=== PATIENT | male | born 1955 | race Caucasian/White ===

== ENCOUNTER → 2020-08-18 | Outpatient (CLI) | payer OTHER | LOC: CAT 15:47 | PROVIDERS: ATTEND Internal Medicine Cardiovascular Disease | DX: Z13.6 Encounter for screening for cardiovascular disorders (principal); I25.10 Atherosclerotic heart disease of native coronary artery without angina pectoris; E78.00 Pure hypercholesterolemia, unspecified ==

== ENCOUNTER → 2020-09-21 | Outpatient (CLI) | payer OTHER ==
[~2020-09-21] MED LIST: ADDERALL 20 MG20 MG PO; ASA81BEC PO; BYSTOLIC 5 MG5 MG PO; CEPHALEXIN 250250 M1 PO; EDARBYCLOR 40-1 EACH PO; FLOMAX0.4 MG PO; FLONASE 0.05%50 MCG NARES; GLUCOSAMINE CH1 EAC4 PO; MELOXICAM15 MG PO; METFORMIN HCL500 M3 PO; MULTI VITAMIN1 EACH PO; MYRBETRIQ50 MG PO; NEXIUM 24HR20 M2 PO; NORVASC5 MG PO; PRAVACHOL40 MG PO; PROSCAR 5MG TABL5 M1 PO; TAMSULOSIN HCL0.4 MG PO; TRAMADOL 50 MG50 MG PO; TYLENOL ARTHRI650 MG PO
== END ==
LOC: LAB 11:40
PROVIDERS: ATTEND Family Medicine
DX: N41.0 Acute prostatitis (principal)

== ENCOUNTER → 2020-09-28 | Outpatient (CLI) | payer OTHER | LOC: SJCVCIMAG 08:57 | PROVIDERS: ATTEND Internal Medicine Cardiovascular Disease | DX: I49.3 Ventricular premature depolarization (principal); R93.1 Abnormal findings on diagnostic imaging of heart and coronary circulation; I10 Essential (primary) hypertension; E78.5 Hyperlipidemia, unspecified; R07.89 Other chest pain; Z88.1 Allergy status to other antibiotic agents ==

== ENCOUNTER → 2020-10-26 | Outpatient (CLI) | payer OTHER ==
[~2020-10-26] MED LIST changes: +HYDROCODON-ACE1 EAC7 PO; +MS CONTIN15 MG PO; +TRI-BUFFERED A325 M1 PO
[2020-10-26 14:16] LABS: HEMATOCRIT 42.7 % (42.0-52.0); HEMOGLOBIN 14.3 gm/dL (14.0-18.0); MCH 30.2 pg (26.0-34.0); MCHC 33.4 g/dL (28.0-37.0); MCV 90.4 fL (80.0-100.0); RBC 4.73 mil/uL (4.50-6.00); RDW 14.2 % (10.5-14.5); WBC 9.5 thou/uL (4.0-11.0)
[2020-10-26 14:25] LABS: ALBUMIN 3.7 g/dL (3.4-5.0); CALCIUM 9.4 mg/dL (8.5-10.1); POTASSIUM 4.4 mmol/L (3.5-5.1)
[2020-10-26 14:28] LABS: INR 0.94; PROTIME 10.3 Seconds (10.5-12.1)
[2020-10-26 14:30] LABS: URINE BILIRUBIN NEGATIVE (Negative); URINE BLOOD NEGATIVE (Negative); URINE CLARITY CLEAR; URINE COLOR YELLOW; URINE GLUCOSE-RANDOM* NEGATIVE (Negative); URINE KETONES NEGATIVE (Negative); URINE LEUKOCYTES-REFLEX NEGATIVE (Negative); URINE NITRITE-REFLEX NEGATIVE (Negative); URINE PROTEIN (DIPSTICK) NEGATIVE (Negative); URINE SPECIFIC GRAVITY 1.025 (1.005-1.035); URINE UROBILINOGEN 0.2 E.U./dl (0.2-1.0)
== END ==
LOC: PAC 07:47
PROVIDERS: ATTEND Orthopaedic Surgery
DX: Z01.812 Encounter for preprocedural laboratory examination (principal); Z20.822 Contact with and (suspected) exposure to COVID-19; M17.11 Unilateral primary osteoarthritis, right knee; E11.9 Type 2 diabetes mellitus without complications; I10 Essential (primary) hypertension

== ENCOUNTER 2020-10-31 08:08 | Observation (INO) | payer OTHER ==
[2020-10-31] VITALS (10 sets, daily range): BP systolic 98–134; BP diastolic 58–78
[~2020-10-31] VITALS: Ht 177.8 cm; Wt 129.7 kg
[~2020-10-31 08:08] MED LIST changes: -HYDROCODON-ACE1 EAC7 PO; -MS CONTIN15 MG PO; -TRI-BUFFERED A325 M1 PO
--- NOTE | 2020-10-31 16:57 | NUR ---
Admission this PM from OR, s/p R TKA; transferred to room safely. On room air. Vital signs stable. On MS, not on telemetry; no complains and signs of chest pain, crushing sensation and heaviness. With at bedside. On regular diet- tolerating well; no nausea, no vomiting and no abdominal pain noted. Falls bundle in place. On blood sugar monitoring, taken and recorded accordingly. Continent of bowel and bladder, able to use urinal. With SL at L FA- D5NS at 100cc/hr started as prescribed; on IV antibiotics as well. S/P R knee- dressing in place, C/D/I; MAYTE hose, polar pack and SCDs in place. JOVANNY dressing in place. Admission assessment, history and education done. Admission forms signed at OR. Pt complained pain upon arriving in the [facility]; called pharmacy to verify meds so PRN pain meds can be given; PRN Morphine given as prescribed. Pt seen and examined by PT Simeon; able to walk in the unit with walker and gait belt. Pt seen by pharmacist re: home meds. PRN PO pain meds given as well. To continue monitoring patient.
--- NOTE | 2020-11-01 04:28 | NUR ---
ASSESSMENT COMPLETED. PT IS ALERT AND ORIENTED. S/P R KNEE SURGERY. PT WITH JOVANNY HANNA WELL TEDS, POLAR ANDRAE AND SCD TO LLE. AFEBRILE. NORCO GIVEN FOR PAIN-RELIEF OBTAINED. DENIES ANY GI OR DISCOMFORT. VOIDING WELL PER URINAL.NO FURTHER CONCERNS AT THIS TIME.
[2020-11-01 04:36] VITALS: BP 117/60
--- NOTE | 2020-11-01 08:57 | NUR ---
ASSESSMENT: CM REVIEWED CHART AND MET WITH PATIENT AT THE BEDSIDE. PT IS ALERT AND ORIENTED X4. PT IS S/P RIGHT TOTAL KNEE REPLACEMENT. PT REPORTS THAT HE LIVES IN A HOUSE WITH HIS THAT IS SPLIT LEVEL BUT PLANS ON STAYING WITH HIS SON WHO LIVES IN A RANCH STYLE HOME UNTIL HE IS DONE WITH SOME OUTPATIENT THERAPY. PT REPORTS THAT HE HAS A WALKER AT HOME TO ASSIST WITH AMBULATION BUT NORMALLY IS FULLY INDEPENDENT WITH ADLS AND AMBULATION. PT REPORTS HAVING OUTPATIENT THERAPY ARRANGED TO BEGIN AT [facility]. PT STATES HE PLANS ON STAYING WITH HIS SON TO AVOID SOME STEPS FOR A WHILE. CM DISCUSSED ROLE. PT DOES NOT ANTICIPATE HAVING ANY NEEDS FROM CM. PT IS TO WORK WITH THERAPY TODAY AND LIKELY DISCHARGE HOME.
[2020-11-01 09:05] VITALS: BP 109/70
--- NOTE | 2020-11-01 12:37 | NUR ---
ASSUMED PT CARE THIS AM. PT IS ALERT & ORIENTED X4. PT HAS IV SITE ON R FA. DC D5 1/[address] AUGUSTINE THIS DMITRI. PT WALK WITH PHYSICAL THERAPY THIS MORNING AND WILL WALK AGAIN THIS AFTERNOON. PT IS ON ROOM AIR. PT TOLERATED MEDICATION AND DIET WELL. NO C/O OF NAUSEA AND VOMITING. PT HAS SCD, POLAR PACK, TEDS AND JOVANNY DRESSING. PT ON THE BED WATCHING TV, BED ON THE LOWEST POSITION, SIDE RAILS UP, CALL LIGHT WITHIN REACH. WILL CONTINUE TO MONITOR PT. FOLLOW POC.
[2020-11-01] MEDS ORDERED: TRI-BUFFERED A325 M1 PO (12:51)
[2020-11-01] MEDS ORDERED: HYDROCODON-ACE1 EAC7 PO (12:51)
[2020-11-01] MEDS ORDERED: MS CONTIN15 MG PO (12:54)
[2020-11-01 14:09] VITALS: BP 109/70
--- NOTE | 2020-11-02 14:47 | O ---
[facility] [place] [address] OPERATIVE REPORT Name: MICHAEL MCCORMICK Room #: 444-P [facility] Soraya Drake#: [id number] Admission: 10/31/20 Attend Phys: Dexter Duran MD Discharge: 11/01/20 Date of : 55 Report #: [id number] THIS REPORT FOR: cc: Mukund Omalley MD, Neal A. MD Abraham, Scott M. MD ~ DOC #: [id number] Dexter Duran MD DATE OF SERVICE: 10/31/2020 PREOPERATIVE DIAGNOSIS: Right knee valgus osteoarthritis. POSTOPERATIVE DIAGNOSIS: Right knee valgus osteoarthritis. PROCEDURE: Right total knee arthroplasty using Navio robotic assistance. SURGEON: Dexter Duran MD. HEEL BUILDER MACHINE: None. ANESTHESIA: LMA with adductor canal block. IMPLANTS: Peña and Nephew size 8 Journey II BCS Oxinium femur, size 6 tibia, size 13 constrained polyethylene and size 35 patella. Tourniquet time was 56 minutes. ESTIMATED BLOOD LOSS: 25 mL. COMPLICATIONS: None. SPECIMENS: None. CONDITION UPON LEAVING OR: Stable. INDICATIONS FOR PROCEDURE: The patient is a 65-year-old gentleman with severe right knee valgus osteoarthritis. He had failed conservative measures for this and after discussion with him, he elected for left total knee arthroplasty. DESCRIPTION OF PROCEDURE: Risks, benefits, alternatives, complications were discussed in detail with the patient including but not limited to risk of anesthesia, risk of damage to nerves, arteries, blood vessels, risk for infection, bleeding, risk for continued knee pain and need for reoperation. Informed consent was obtained from the patient. The right knee was appropriately marked in the preoperative holding area. IV Ancef was given for preoperative antibiotics. He was brought to the operating room and placed in supine position on the operating table. LMA anesthesia was induced without [facility] [address] [place] [address] OPERATIVE REPORT Name: MICHAEL MCCORMICK Room #: 444-P ZION Drake#: [id number] Admission: 10/31/20 Attend Phys: Dexter Duran MD Discharge: 11/01/20 Date of : 55 Report #: [id number] complication. Tourniquet was placed on the right thigh. Right lower extremity was prepped and draped in normal sterile fashion. Timeout was performed properly identifying the patient and procedure as well as instrumentation and implants. All in the operating room in agreement. Right lower extremity was exsanguinated, tourniquet was inflated. Tourniquet time was 56 minutes. Standard midline approach to the knee was made with 10 blade through the skin. Dissection was taken down sharply to the fascia and deep flaps were developed medially and laterally. Fresh 10 blade was used to make a medial parapatellar arthrotomy and the knee was inspected. There was severe lateral compartment osteoarthritis with moderate medial and patellofemoral osteoarthritis. ACL and PCL were removed sharply. Reference pins were placed in the femur and the tibia. The knee was then digitally mapped using the [employer] robotic system. Intraoperative plan was made. We sized the size 8 femur, the size 6 tibia and a 10 spacer. After acceptance of the intraoperative plan, the distal femoral cut was made with Navio bur. Distal femoral cutting block was pinned in place and chamfer cuts were made. Attention was turned to the tibia. Remainder of the menisci removed with Bovie cautery. Tibial resection guide was pinned in place using Navio for placement and tibial resection was made. After this flexion and extension gaps were checked and found to have good balance laterally in flexion and extension. He was loose medially and this was not surprising given his underlying valgus deformity, it was felt we can make up for this with a constrained implant. Tibia sized, found to be a size 6 and size 6 tibial trial was placed, pinned and punched. A size 8 femoral trial was placed and the box cut was made. This was then trialed with a size 10 up to a size 13 polyethylene. Size 13 polyethylene demonstrated the best stability and range of motion of the knee. A 9 mm of bone was resected from the posterior surface of the patella and a size 35 patellar trial button was placed, knee was taken through range of motion, found to be stable, found to have good patellar tracking. Trial components were removed. Bone ends were thoroughly irrigated with normal saline. A final size 6, tibia size 8 Journey II BCS Oxinium femur and a size 35 patella were cemented in place using standard cementation techniques. While the cement cured, a periarticular injection consisting of morphine, ropivacaine, epinephrine, Toradol was placed around the knee joint capsule. After the cement cured, tourniquet was deflated. Hemostasis was obtained with Bovie cautery. Final size 13 constrained polyethylene was placed. A gram of vancomycin was placed deep in the joint. The fascia was closed with 0 Vicryl. Skin was closed with 2-0 Vicryl, skin staple and a JOVANNY dressing was applied. The patient tolerated this procedure well and went to recovery room under care of anesthesia postoperatively. Dexter Duran MD [facility] [address] [address] OPERATIVE REPORT Name: MICHAEL MCCORMICK Room #: 444-P ZION Drake#: [id number] Admission: 10/31/20 Attend Phys: Dexter Duran MD Discharge: 11/01/20 Date of : 55 Report #: [id number] <ELECTRONICALLY SIGNED> By: Dexter Duran MD 11/02/20 1447 [id number] Dexter Duran MD /nt
== END 2020-11-01 15:20 | disposition home or self-care (01) ==
LOC: OR 08:08 → 4S 13:32 → OR 14:08 → 4S 11-01 15:20
PROVIDERS: ADMIT Orthopaedic Surgery; ATTEND Orthopaedic Surgery
DX: M17.11 Unilateral primary osteoarthritis, right knee (principal)
CPT/HCPCS: 10102; 50010; 50101; 50415; 50954; 51130; 51225; 51320; 52001; 52282; 53000; 53078; 53365; 56527; 56528; 57095; 57103; 57110; 57127; 57180; 62110; 62900; 64043; 65060; 70005

== ENCOUNTER → 2020-12-27 | Outpatient (CLI) | payer OTHER ==
[~2020-12-27] MED LIST changes: +HYDROCODON-ACE1 EAC7 PO; +LEVOFLOXACIN500 MG PO; +MEDROLDOSEPACK PO; +MS CONTIN15 MG PO; +TRI-BUFFERED A325 M1 PO; +[UNRECOGNIZED DRUG - OTHER] TOP
== END ==
LOC: CAT 09:44
PROVIDERS: ATTEND Urology
DX: N32.3 Diverticulum of bladder (principal)

== ENCOUNTER → 2021-01-09 | Outpatient (CLI) | payer OTHER ==
[~2021-01-09] MED LIST changes: +METOPROLOL SUCC50 MG PO
[2021-01-09 11:47] LABS: HEMOGLOBIN 14.5 gm/dL (14.0-18.0); MCH 30.5 pg (26.0-34.0); MCHC 34.5 g/dL (28.0-37.0); MCV 88.3 fL (80.0-100.0); RBC 4.75 mil/uL (4.50-6.00); WBC 9.4 thou/uL (4.0-11.0)
[2021-01-09 11:49] LABS: URINE BILIRUBIN NEGATIVE (Negative); URINE BLOOD NEGATIVE (Negative); URINE CLARITY CLEAR; URINE COLOR YELLOW; URINE GLUCOSE-RANDOM* NEGATIVE (Negative); URINE KETONES NEGATIVE (Negative); URINE LEUKOCYTES-REFLEX NEGATIVE (Negative); URINE NITRITE-REFLEX NEGATIVE (Negative); URINE PROTEIN (DIPSTICK) NEGATIVE (Negative); URINE SPECIFIC GRAVITY 1.015 (1.005-1.035); URINE UROBILINOGEN 0.2 E.U./dl (0.2-1.0)
[2021-01-09 11:54] LABS: ALBUMIN 4.1 g/dL (3.4-5.0); CALCIUM 9.3 mg/dL (8.5-10.1); CREATININE 1.1 mg/dL (0.7-1.3); POTASSIUM 4.6 mmol/L (3.5-5.1)
[2021-01-09 11:59] LABS: INR 0.94; PROTIME 10.3 Seconds (10.5-12.1)
[2021-01-10 03:06] LABS: GLYCOHEMOGLOBIN (HGB A1C) 5.9 % (4.8-5.6)
== END ==
LOC: PAC 10:09
PROVIDERS: ATTEND Orthopaedic Surgery
DX: Z01.812 Encounter for preprocedural laboratory examination (principal); M17.12 Unilateral primary osteoarthritis, left knee; Z88.0 Allergy status to penicillin

== ENCOUNTER 2021-01-18 11:52 | Observation (INO) | payer OTHER ==
[~2021-01-18] VITALS: Ht 180.3 cm; Wt 117.9 kg
[2021-01-18 14:38] VITALS: BP 108/64
[2021-01-18 18:20] VITALS: BP 121/79
--- NOTE | 2021-01-18 20:01 | NUR ---
PT ADMITTED TO THE UNIT AT 1815. PT IS A/O X4 AND IS UP WITH ASSISTANCE X1 POST SURGERY. ROOM AIR. VSS. AFEBRILE. C/O PAIN TO LEFT KNEE. WILL PROVIDE PAIN MEDICATION DIRECTED. POLAR PACK, SCD'S, KNEE HIGH MAYTE HOSE IN PLACE. DRSG C/D/I. ADMISSION COMPLETE. PT HAS BEEN EDUCATED ON THE USE OF THE CALL LIGHT AND BED CONTROLS. CALLS OUT APPROPRIATELY. FALL PRECAUTIONS IN PLACE, CALL LIGHT IS WITHIN REACH. WILL CONTINUE TO MONITOR.
[2021-01-18 20:03] VITALS: BP 131/87
--- NOTE | 2021-01-19 07:30 | O ---
[facility] [place] [address] OPERATIVE REPORT Name: MICHAEL MCCORMICK Room #: 434-P [facility] Vidal#: [id number] Admission: 01/18/21 Attend Phys: Dexter Duran MD Discharge: Date of : 55 Report #: [id number] THIS REPORT FOR: cc: Mukund Omalley MD, Neal A. MD Abraham,Dexter Ely MD ~ DATE OF SERVICE: 01/18/2021 PREOPERATIVE DIAGNOSIS: Left knee osteoarthritis. POSTOPERATIVE DIAGNOSIS: Left knee osteoarthritis. PROCEDURE: Left total knee arthroplasty using Navio robotic assistance. SURGEON: Dexter Duran MD RACK PRODUCTION WORKER: Katja Humphreys PA-C INDICATION FOR RACK PRODUCTION WORKER: Throughout the case, extensive retraction, manipulation of the knee was required. This supported by my mechanic assistant. ANESTHESIA: LMA with adductor canal block. IMPLANTS: A Peña and Nephew size 7 Journey II BCS Oxinium femur, size 7 tibia, size 12 constrained polyethylene and size 35 patella. TOURNIQUET TIME: 51 minutes. ESTIMATED BLOOD LOSS: 25 mL. COMPLICATIONS: None. SPECIMENS: None. CONDITION UPON LEAVING THE OR: Stable. INDICATIONS FOR PROCEDURE: The patient is a 65-year-old gentleman with severe left knee osteoarthritis. He had failed conservative measures for this and after discussion with him, he elected for left total knee arthroplasty. DESCRIPTION OF PROCEDURE: Risks, benefits, alternatives, complications were discussed in detail with the patient including but not limited to risk of anesthesia, risk of damage to nerves, arteries, blood vessels, risk for infection, bleeding, risk for continued knee pain, need for reoperation. Informed consent was obtained from the patient. Left knee was appropriately marked in the preoperative holding area. IV Ancef was given for preoperative [address] [address] OPERATIVE REPORT Name: MICHAEL MCCORMICK Room #: 434-P [facility] Soraya Drake#: [id number] Admission: 01/18/21 Attend Phys: Dexter Duran MD Discharge: Date of : 55 Report #: [id number] antibiotics. He was brought to the operating room and placed in supine position on the operating table. LMA anesthesia was induced without complication. Tourniquet was placed on the left thigh. Left lower extremity was prepped and draped in normal sterile fashion. Timeout was performed properly identifying the patient and procedure as well as instrumentation and implants. All in the operating room in agreement. Left lower extremity was exsanguinated, tourniquet was inflated. Tourniquet time was 51 minutes. Standard midline approach to the mid knee was made with 10 blade through the skin. Dissection was taken down sharply to the fascia and deep flaps were developed medially and laterally. Fresh 10 blade was used to make a medial parapatellar arthrotomy and the knee was inspected. There was severe lateral compartment osteoarthritis with moderate medial patellofemoral compartment osteoarthritis. ACL and PCL were removed sharply. Reference pins were placed in the femur and the tibia. The knee was digitally mapped using the [employer] robotic system. Intraoperative plan was made and we sized the size 7 femur, size 7 tibia and a 10 spacer. After acceptance of the intraoperative plan, the distal femoral cut was made with Navio bur. Distal femoral cutting block was pinned in place and chamfer cuts were made. Attention was turned to the tibia. Remainder of the menisci removed with Bovie cautery. Tibial resection guide was pinned in place using Navio for placement and tibial resection was made. Flexion and extension gaps were checked and found to have good balance laterally in flexion and extension. There was slight laxity medially. It was felt we can make up for this with a constrained implant. Tibia was sized, found to be a size 7. A size 7 tibial trial was placed, pinned and punched. Size 7 femoral trial was placed and box cut was made. This was then trialed with a size 10 up to a size 12 polyethylene and a size 12 polyethylene demonstrated 1 mm laxity laterally throughout range of motion of the knee. He did have up to 3 mm of laxity medially. Again, it was felt we can make up for this with a constrained implant. The 9 mm of bone was resected from the posterior surface of the patella and a size 35 patellar trial button was placed, knee was taken through range of motion, found to be stable, found to have good patellar tracking. Trial components were removed. Bone ends were thoroughly irrigated with normal saline. A final size 7 tibia, size 7 Journey II BCS Oxinium femur, a size 35 patella were cemented in place using standard cementation techniques. While the cement cured, a periarticular injection consisting of morphine, ropivacaine, epinephrine, Toradol was placed around the knee joint capsule. After the cement cured, tourniquet was deflated. Hemostasis was obtained with Bovie cautery. A final size 12 constrained polyethylene was placed. A gram of vancomycin was placed deep in the joint. Fascia was closed with 0 Vicryl. Skin was closed with 2-0 Vicryl, skin staple and a JOVANNY dressing was applied. The patient tolerated this procedure well and went to recovery room under care of anesthesia postoperatively. <ELECTRONICALLY SIGNED> By: Dexter Duran MD 01/19/21 0730 [id number] Dexter Duran MD /heidi
[2021-01-19 08:20] VITALS: BP 96/56
--- NOTE | 2021-01-19 10:39 | NUR ---
Assumed care of pt at 0700. Pt a&ox4. Pain controlled with prn pain meds. IVF infusing. Pt worked with physical therapy this am. Dressing c/d/i. Polar care in place. MAYTE hose and SCDs in place. Likely discharging to home tomorrow (01/20). Call light within reach. Fall precautions in place. Will continue to monitor.
[2021-01-19 12:38] LABS: URINE BILIRUBIN NEGATIVE (Negative); URINE BLOOD NEGATIVE (Negative); URINE CLARITY CLEAR; URINE COLOR YELLOW; URINE GLUCOSE-RANDOM* NEGATIVE (Negative); URINE KETONES NEGATIVE (Negative); URINE LEUKOCYTES-REFLEX NEGATIVE (Negative); URINE NITRITE-REFLEX NEGATIVE (Negative); URINE PROTEIN (DIPSTICK) NEGATIVE (Negative); URINE SPECIFIC GRAVITY 1.025 (1.005-1.035); URINE UROBILINOGEN 0.2 E.U./dl (0.2-1.0)
--- NOTE | 2021-01-19 13:03 | NUR ---
ASSESSMENT: CM REVIEWED CHART AND MET WITH PATIENT AT THE BEDSIDE. PT IS ALERT AND ORIENTED X4. PT IS S/P LEFT TKA. PT JUST RECENTLY HAD RIGHT TKA COMPLETED BEFORE. PT LIVES AT HOME WITH HIS IN A SPLIT LEVEL HOME. PT REPORTS THAT WHEN ENTERING THROUGH THEIR BASEMENT HE PLANS ON STAYING ON THE BOTTOM FLOOR HE CAN LIVE IN THE AREA DOWN THERE UNTIL HE HEALS BETTER WITH STEPS. PT HAS ABOUT 7 STEPS WITH HANDRAIL HE STATES. PT REPORTS HAVING A WALKER AND A CANE AT HOME. PT REPORTS HE IS SCHEDULED TO START DOING OUTPATIENT THERAPY HERE AT [facility]. PT REPORTS THAT HE ALREADY HAS APPOINTMENTS ARRANGED. PT IS TO CONTINUE WITH THERAPY AND LIKELY HOME TOMORROW. CM WILL CONTINUE TO FOLLOW TO ASSIST NEEDED.
[2021-01-19 20:04] VITALS: BP 113/63
--- NOTE | 2021-01-20 02:30 | NUR ---
PT IS A/O X4 AND IS UP WITH SBA USING WALKER AND GB TO THE BR. VSS. AFEBRILE. C/O PAIN TO LEFT KNEE. PRN PAIN MEDICATION GIVEN DIRECTED. PT IS PLEASANT AND COOPERATIVE. JOVANNY HANNA C/D/I. REMAINS WITH POLAR PACK,MAYTE HOSE, AND SCDS IN PLACE. CALLS OUT APPROPRIATELY FOR ASSISTANCE. IS PROGRESSING TOWARDS PLAN OF CARE DC GOALS. VOIDS PER TOILET OR URINAL. NO BM THIS SHIFT BUT DOES STATE HE HAS BEEN ABLE TO PASS FLATUS POST SURGERY. FALL PRECAUTIONS IN PLACE, CALL LIGHT IS WITHIN REACH. WILL CONTINUE TO MONITOR.
[2021-01-20 07:04] VITALS: BP 128/11
--- NOTE | 2021-01-20 10:06 | NUR ---
ASSUMED PT CARE THIS AM. PT IS ALERT & ORIENTED X4. PT HAS IV SITE ON L HAND 20 GAUGE. PT IS UP WITH ASSIST X1 WITH GAITBELT AND WALKER. PT HAS JOVANNY DRESSING, POLAR PACK, BILATERAL MAYTE HOSES, AND SCD. PT IS ON ROOM AIR. PT C/O OF PAIN AND GIVEN PAIN MEDICATION PER PT REQUEST. PT WILL BE WORKING WITH PHYSICAL THERAPY. AWAITING FOR PHYSICAL THERAPY PERSPECTIVE IF OK FOR DC. PT TOLERATED MEDICATION AND DIET WELL. NO C/O OF NAUSEA AND VOMITING. WILL CONTINUE TO MONITOR PT. FOLLOW POC.
[2021-01-20 12:38] VITALS: BP 128/77
--- NOTE | 2021-01-20 13:41 | NUR ---
ON-GOING ASSESSMENT: CM REVIEWED CHART. PT CONTINUES TO WORK WITH THERAPY AND LIKELY DISCHARGE HOME TODAY WITH NO NEEDS FROM CM. PT ALREADY HAS EQUIPMENT AT HOME AND OUTPATIENT THERAPY ARRANGED HERE AT [facility].
== END 2021-01-20 17:00 | disposition home or self-care (01) ==
LOC: OR → 4S 18:18 → OR 18:19 → 4S 18:19
PROVIDERS: Family Medicine; ADMIT Orthopaedic Surgery; ATTEND Orthopaedic Surgery
DX: M17.12 Unilateral primary osteoarthritis, left knee (principal); Z20.822 Contact with and (suspected) exposure to COVID-19; I10 Essential (primary) hypertension; N40.0 Benign prostatic hyperplasia without lower urinary tract symptoms; Z79.899 Other long term (current) drug therapy
CPT/HCPCS: 50010; 50101; 50415; 50954; 51130; 51225; 51320; 51412; 52001; 52282; 53000; 53078; 53365; 56527; 56528; 57095; 57103; 57110; 57127; 57180; 62110; 62900; 64043; 65060; 70005

== ENCOUNTER 2021-02-25 17:07 | Emergency (ER) | payer OTHER ==
[~2021-02-25] VITALS: Ht 180.3 cm; Wt 117.9 kg
[2021-02-25 17:29] LABS: URINE BILIRUBIN NEGATIVE (Negative); URINE BLOOD TRACE (Negative); URINE CLARITY SL CLOUDY; URINE COLOR YELLOW; URINE GLUCOSE-RANDOM* NEGATIVE (Negative); URINE KETONES NEGATIVE (Negative); URINE LEUKOCYTES-REFLEX 2+ (Negative); URINE NITRITE-REFLEX POSITIVE (Negative); URINE PROTEIN (DIPSTICK) NEGATIVE (Negative); URINE SPECIFIC GRAVITY >= 1.030 (1.005-1.035); URINE UROBILINOGEN 0.2 E.U./dl (0.2-1.0)
[2021-02-25 17:35] LABS: MUCUS 0-3 Light strn/LPF (None Seen); SQUAMOUS 0-3 Few /LPF (0-3)
[2021-02-25 17:36] LABS: BACTERIA-REFLEX >30 Many /HPF (None Seen); CASTS None Seen /LPF (None Seen); CRYSTALS None Seen /LPF (None Seen); URINE RBC 1-2 Rare /HPF (NONE SEEN); URINE WBC-REFLEX >25 Many /HPF (0-5)
[2021-02-25 18:23] LABS: ABSOLUTE NEUTROPHILS 8.1 thou/uL (1.4-8.2); BASOPHILS 0.3 % (0.0-2.0); EOSINOPHILS 0.4 % (0.0-3.0); HEMATOCRIT 40.3 % (42.0-52.0); HEMOGLOBIN 13.3 gm/dL (14.0-18.0); LYMPHOCYTES 7.2 % (24.0-44.0); MCH 28.8 pg (26.0-34.0); MCHC 33.1 g/dL (28.0-37.0); MCV 87.2 fL (80.0-100.0); MONOCYTES 4.6 % (1.0-8.0); PLATELET COUNT 203 thou/uL (150-400); POLYS 87.5 % (36.0-66.0); RBC 4.62 mil/uL (4.50-6.00); RDW 14.8 % (10.5-14.5); WBC 9.2 thou/uL (4.0-11.0)
[2021-02-25 18:26] LABS: CALCIUM 8.2 mg/dL (8.5-10.1); CREATININE 0.9 mg/dL (0.7-1.3); POTASSIUM 3.5 mmol/L (3.5-5.1)
[2021-02-25 18:32] LABS: ALBUMIN 3.5 g/dL (3.4-5.0); TOTAL BILIRUBIN 0.5 mg/dL (0.2-1.0); TOTAL PROTEIN 6.8 g/dL (6.4-8.2)
[2021-02-25] MEDS ORDERED: LEVOFLOXACIN750 MG PO (18:47)
[2021-02-25 18:50] VITALS: BP 132/65
== END 2021-02-25 18:50 | disposition home or self-care (01) ==
LOC: ER 17:07
PROVIDERS: Nurse Practitioner Family
DX: N39.0 Urinary tract infection, site not specified (principal); E11.9 Type 2 diabetes mellitus without complications; I10 Essential (primary) hypertension; E78.5 Hyperlipidemia, unspecified; K21.9 Gastro-esophageal reflux disease without esophagitis; Z79.82 Long term (current) use of aspirin; Z79.899 Other long term (current) drug therapy

== ENCOUNTER → 2021-03-03 | Outpatient (CLI) | payer OTHER ==
[~2021-03-03] MED LIST changes: +LEVOFLOXACIN750 MG PO
== END ==
LOC: RAD 09:25
PROVIDERS: ATTEND Family Medicine
DX: N28.1 Cyst of kidney, acquired (principal)

== ENCOUNTER → 2021-04-27 | Outpatient (CLI) | payer OTHER ==
[2021-04-27 11:31] LABS: ABSOLUTE NEUTROPHILS 4.9 thou/uL (1.4-8.2); BASOPHILS 0.6 % (0.0-2.0); EOSINOPHILS 4.1 % (0.0-3.0); HEMATOCRIT 40.7 % (42.0-52.0); HEMOGLOBIN 13.4 gm/dL (14.0-18.0); LYMPHOCYTES 19.6 % (24.0-44.0); MCH 29.3 pg (26.0-34.0); MCHC 32.9 g/dL (28.0-37.0); MONOCYTES 10.4 % (1.0-8.0); PLATELET COUNT 230 thou/uL (150-400); POLYS 65.3 % (36.0-66.0); RBC 4.58 mil/uL (4.50-6.00); RDW 15.3 % (10.5-14.5); URINE BILIRUBIN NEGATIVE (Negative); URINE BLOOD NEGATIVE (Negative); URINE CLARITY CLOUDY; URINE COLOR YELLOW; URINE GLUCOSE-RANDOM* NEGATIVE (Negative); URINE KETONES NEGATIVE (Negative); URINE LEUKOCYTES 2+ (Negative); URINE NITRITE NEGATIVE (Negative); URINE PROTEIN (DIPSTICK) NEGATIVE (Negative); URINE SPECIFIC GRAVITY >= 1.030 (1.005-1.035); URINE UROBILINOGEN 0.2 E.U./dl (0.2-1.0); WBC 7.5 thou/uL (4.0-11.0)
[2021-04-27 11:42] LABS: ALBUMIN 3.7 g/dL (3.4-5.0); CALCIUM 8.6 mg/dL (8.5-10.1); CREATININE 1.4 mg/dL (0.7-1.3); POTASSIUM 4.2 mmol/L (3.5-5.1); TOTAL BILIRUBIN 0.3 mg/dL (0.2-1.0); TOTAL PROTEIN 7.1 g/dL (6.4-8.2)
[2021-04-27 12:08] LABS: BACTERIA >30 Many /HPF (None Seen); CASTS None Seen /LPF (None Seen); CRYSTALS None Seen /LPF (None Seen); SQUAMOUS 0-3 Few /LPF (0-3); URINE RBC 1-2 Rare /HPF (NONE SEEN); URINE WBC >25 Many /HPF (NONE SEEN)
== END ==
LOC: LAB 10:22
PROVIDERS: ATTEND Specialist
DX: N39.0 Urinary tract infection, site not specified (principal)

== ENCOUNTER → 2021-05-16 | Outpatient (CLI) | payer OTHER ==
[2021-05-16 09:22] LABS: ABSOLUTE NEUTROPHILS 4.4 thou/uL (1.4-8.2); BASOPHILS 0.8 % (0.0-2.0); EOSINOPHILS 2.2 % (0.0-3.0); HEMATOCRIT 40.3 % (42.0-52.0); HEMOGLOBIN 13.8 gm/dL (14.0-18.0); LYMPHOCYTES 24.5 % (24.0-44.0); MCHC 34.3 g/dL (28.0-37.0); MCV 87.3 fL (80.0-100.0); MONOCYTES 9.6 % (1.0-8.0); PLATELET COUNT 236 thou/uL (150-400); POLYS 62.9 % (36.0-66.0); RBC 4.62 mil/uL (4.50-6.00); RDW 15.5 % (10.5-14.5)
[2021-05-16 09:35] LABS: ALBUMIN 3.8 g/dL (3.4-5.0); CALCIUM 8.8 mg/dL (8.5-10.1); CREATININE 1.1 mg/dL (0.7-1.3); POTASSIUM 3.9 mmol/L (3.5-5.1); TOTAL BILIRUBIN 0.6 mg/dL (0.2-1.0)
== END ==
LOC: LAB 08:47
PROVIDERS: ATTEND Specialist
DX: N39.0 Urinary tract infection, site not specified (principal)

== ENCOUNTER → 2021-06-26 | Outpatient (CLI) | payer OTHER ==
[2021-06-26 09:19] LABS: URINE BILIRUBIN NEGATIVE (Negative); URINE BLOOD NEGATIVE (Negative); URINE CLARITY CLEAR; URINE COLOR YELLOW; URINE GLUCOSE-RANDOM* NEGATIVE (Negative); URINE KETONES NEGATIVE (Negative); URINE LEUKOCYTES-REFLEX NEGATIVE (Negative); URINE NITRITE-REFLEX NEGATIVE (Negative); URINE PROTEIN (DIPSTICK) NEGATIVE (Negative); URINE SPECIFIC GRAVITY 1.025 (1.005-1.035); URINE UROBILINOGEN 0.2 E.U./dl (0.2-1.0)
[2021-06-26 09:20] LABS: ABSOLUTE NEUTROPHILS 5.3 thou/uL (1.4-8.2); BASOPHILS 0.7 % (0.0-2.0); EOSINOPHILS 1.5 % (0.0-3.0); HEMATOCRIT 42.6 % (42.0-52.0); HEMOGLOBIN 14.2 gm/dL (14.0-18.0); MCH 29.5 pg (26.0-34.0); MCHC 33.4 g/dL (28.0-37.0); MCV 88.4 fL (80.0-100.0); PLATELET COUNT 223 thou/uL (150-400); POLYS 67.8 % (36.0-66.0); RBC 4.82 mil/uL (4.50-6.00); RDW 14.8 % (10.5-14.5); WBC 7.8 thou/uL (4.0-11.0)
[2021-06-26 09:33] LABS: ALBUMIN 3.9 g/dL (3.4-5.0); CALCIUM 8.8 mg/dL (8.5-10.1); CREATININE 1.2 mg/dL (0.7-1.3); POTASSIUM 4.4 mmol/L (3.5-5.1); TOTAL BILIRUBIN 0.3 mg/dL (0.2-1.0); TOTAL PROTEIN 6.8 g/dL (6.4-8.2)
== END ==
LOC: LAB 08:18
PROVIDERS: ATTEND Specialist
DX: N39.0 Urinary tract infection, site not specified (principal)

== ENCOUNTER → 2021-07-17 | Outpatient (CLI) | payer OTHER ==
[2021-07-17 16:15] LABS: URINE BILIRUBIN NEGATIVE (Negative); URINE BLOOD NEGATIVE (Negative); URINE CLARITY CLEAR; URINE COLOR YELLOW; URINE GLUCOSE-RANDOM* NEGATIVE (Negative); URINE KETONES NEGATIVE (Negative); URINE NITRITE-REFLEX NEGATIVE (Negative); URINE PROTEIN (DIPSTICK) NEGATIVE (Negative); URINE SPECIFIC GRAVITY >= 1.030 (1.005-1.035)
[2021-07-17 16:16] LABS: URINE LEUKOCYTES-REFLEX 1+ (Negative)
[2021-07-17 16:22] LABS: BACTERIA-REFLEX 1-9 Few /HPF (None Seen); SQUAMOUS 0-3 Few /LPF (0-3); URINE RBC None Seen /HPF (NONE SEEN); URINE WBC-REFLEX >25 Many /HPF (0-5)
[2021-07-17 16:23] LABS: CASTS None Seen /LPF (None Seen); CRYSTALS None Seen /LPF (None Seen)
== END ==
LOC: LAB 15:41
PROVIDERS: ATTEND Specialist
DX: N39.0 Urinary tract infection, site not specified (principal)

== ENCOUNTER → 2021-07-18 | Outpatient (CLI) | payer OTHER ==
[2021-07-18 10:12] LABS: ABSOLUTE NEUTROPHILS 5.8 thou/uL (1.4-8.2); BASOPHILS 0.5 % (0.0-2.0); EOSINOPHILS 3.8 % (0.0-3.0); LYMPHOCYTES 19.6 % (24.0-44.0); MCH 29.6 pg (26.0-34.0); MCHC 33.2 g/dL (28.0-37.0); MCV 88.9 fL (80.0-100.0); PLATELET COUNT 237 thou/uL (150-400); POLYS 68.1 % (36.0-66.0); RBC 4.72 mil/uL (4.50-6.00); RDW 14.7 % (10.5-14.5); WBC 8.5 thou/uL (4.0-11.0)
[2021-07-18 10:26] LABS: ALBUMIN 3.5 g/dL (3.4-5.0); CALCIUM 9.1 mg/dL (8.5-10.1); CREATININE 1.1 mg/dL (0.7-1.3); POTASSIUM 3.7 mmol/L (3.5-5.1); TOTAL BILIRUBIN 0.3 mg/dL (0.2-1.0)
== END ==
LOC: LAB 08:27
PROVIDERS: ATTEND Specialist
DX: N39.0 Urinary tract infection, site not specified (principal)